=== PATIENT | male | born 1990 | race African-American/Black ===

== ENCOUNTER 2016-04-17 09:47 | Emergency (ER) | payer OTHER ==
[2016-04-17 09:53] VITALS: BP 133/75; PULSE 96; TEMP 98.3; BMI 22.0
--- NOTE | 2016-04-17 11:06 | PDOC ---
History of Present Illness - General Chief Complaint: Pain, Acute Stated Complaint: LT KNEE PAIN Time Seen by Provider: 04/17/16 10:25 History Source: Patient Exam Limitations: No Limitations - History of Present Illness Initial Comments: 04/17/16 11:01 25 yr male states he slipped on ice at 3am today and twisted left knee. Pt has pain to the knee. Occurred: reports: this morning Lower Ext. Injury Location - Specific Injury Location Knees: left swelling, left pain (knee) Past History - Past Medical History Allergies/Adverse Reactions: Allergies Allergy/AdvReac Type Severity Reaction Status Date / Time No Known Allergies Allergy Verified 04/17/16 09:50 Home Medications: Ambulatory Orders NK [No Known Home Medication] 10/21/15 Other medical history: denies - Psycho/Social/Smoking Cessation Hx Anxiety: No Suicidal Ideation: No Smoking History: Never smoked Have you smoked in the past 12 months: No Hx Alcohol Use: No Substance Use Type: None Review of Systems - Review of Systems Able to Perform ROS?: Yes Is the patient limited Slovak proficient: No Constitutional: No: Symptoms Reported HEENTM: No: Symptoms Reported Respiratory: No: Symptoms reported, Other Cardiac (ROS): No: Symptoms Reported ABD/GI: No: Symptoms Reported : No: Symptoms Reported Musculoskeletal: Yes: See HPI Integumentary: No: Symptoms Reported *Physical Exam - Vital Signs Last Vital Signs Temp Pulse Resp BP Pulse Ox 98.3 F 96 H 18 133/75 96 04/17/16 09:50 04/17/16 09:50 04/17/16 09:50 04/17/16 09:50 04/17/16 09:50 - Physical Exam General Appearance: Yes: Nourished, Appropriately Dressed HEENT: positive: EOMI, THERESA, Normal ENT Inspection, TMs Normal, Pharynx Normal Neck: positive: Supple Respiratory/Chest: positive: Lungs Clear, Normal Breath Sounds Cardiovascular: positive: Regular Rhythm, Regular Rate Musculoskeletal: positive: Normal Inspection Extremity: positive: Normal Capillary Refill, Normal Inspection, Normal Range of Motion, Tender (left knee tender medially ), Other (no laxity ) Integumentary: positive: Normal Color, Dry, Warm Neurologic: positive: Fully Oriented, Alert, Normal Mood/Affect, Normal Response , Motor Strength 5/5 Procedures - Splinting Pre-Made Type: knee immobilizer (left knee) ED Treatment Course - RADIOLOGY Radiology Studies Ordered: Category Date Time Status KNEE 3 POS-LEFT [RAD] Stat Radiology 04/17/16 10:26 Completed Medical Decision Making - Medical Decision Making 04/17/16 11:04 cc: left knee pain after twisting knee will xray to r/o fracture motrin for pain 04/17/16 11:05 knee immobilizer placed dc inst discussed pt understands the importance of strict follow up *DC/Admit/Observation/Transfer Diagnosis at time of Disposition: Knee sprain Qualifiers: Encounter type: initial encounter Involved ligament of knee: other ligament Laterality: left Qualified Code(s): S83.8X2A - Sprain of other specified parts of left knee, initial encounter - Discharge Dispostion Disposition: HOME Condition at time of disposition: Good - Referrals Referrals: Sajan Rodriguez MD [Staff Physician] - - Patient Instructions Additional Instructions: apply ice to the knee every 2hrs for 20 minutes take motrin for pain use the knee immobilizer while awake remove to sleep and bathe follow with the orthopedist for follow up this week
== END 2016-04-17 11:14 | disposition home or self-care (01) ==
LOC: JERFT 09:47
PROC: 2W3MX1Z Immobilization of Left Lower Extremity using Splint (ICD-10-PCS; principal; 2016-04-17)
DX: S83.8X2A Sprain of other specified parts of left knee, initial encounter (principal); W00.2XXA Other fall from one level to another due to ice and snow, initial encounter; Y93.89 Activity, other specified; Y92.89 Other specified places as the place of occurrence of the external cause
CPT/HCPCS: 73562-TC-LT; 99281-25